=== PATIENT | male | born 1970 | race Caucasian/White ===

== ENCOUNTER 2020-10-26 07:28 | Outpatient (CLI) | payer OTHER, SELFPAY ==
[2020-10-26 07:52] LABS: Basophils Absolute Auto 0.1 K/mm3 (0.0-0.1); Basophils Percent Auto 0.9 % (0.2-1.2); Eosinophils Absolute Auto 0.3 K/mm3 (0-0.3); Eosinophils Percent Auto 3.2 % (0-4.4); Hematocrit 40.7 % (42.0-52.0); Hemoglobin 14.1 g/dL (14.0-18.0); Immature Granulocyte Absolute 0.05 K/mm3 (0.00-0.031); Immature Granulocyte Percent A 0.6 % (0-0.5); Lymphocytes Absolute Auto 2.77 K/mm3 (0.9-3.2); Lymphocytes Percent Auto 34.9 % (18.3-44.2); Mean Corpuscular HGB Conc 34.6 g/dl (32-36); Mean Corpuscular Hemoglobin 31.8 pg (26-34); Mean Corpuscular Volume 91.9 fl (80-100); Mean Platelet Volume 10.2 fl (7.4-10.4); Neutrophils Absolute Auto 3.8 K/mm3 (1.3-6.7); Neutrophils Percent Auto 48.4 % (45.5-73.1); Platelet Count Result 205 k/mm3 (150-375); Red Blood Count 4.43 M/mm3 (4.6-6.20); Red Cell Distribution Width 13.6 % (11.5-14.5); White Blood Count 7.9 K/mm3 (4.5-10.0)
[2020-10-26 08:29] LABS: Alanine Aminotransferase 54 U/L (4-50); Albumin Level 3.8 g/dL (3.5-5.1); Alkaline Phosphatase 66 U/L (38-126); Anion Gap 6 mmol/L (8-16); Aspartate Amino Transferase 41 U/L (17-59); Bilirubin,Total 0.5 mg/dL (0.2-1.3); Blood Urea Nitrogen 19 mg/dL (9-20); Calcium 8.4 mg/dL (8.4-10.2); Carbon Dioxide 28 mmol/L (22-30); Chloride 103 mmol/L (98-107); Cholesterol 192 mg/dL (0-200); Estimated Glomerular Filt Rate > 60; Glucose 133 mg/dL (75-110); HDL Direct 50 mg/dL; Potassium 3.6 mmol/L (3.4-5.0); Sodium 137 mmol/L (137-145); Triglycerides 208 mg/dL (<150)
[2020-10-26 08:39] LABS: LDL Cholesterol Direct 116 mg/dL
[2020-10-26 13:36] LABS: Hemoglobin A1C 7.4 % (<5.7)
== END 2020-10-26 07:29 | disposition home or self-care (01) ==
PROVIDERS: PCP Internal Medicine; Referring Provider Clinical Nurse Specialist; Visit Provider Nurse Practitioner
DX: E78.5 Hyperlipidemia, unspecified (principal); I10 Essential (primary) hypertension; R73.09 Other abnormal glucose; E03.9 Hypothyroidism, unspecified
CPT/HCPCS: 36415; 80053; 80061; 83036; 84443; 85025

== ENCOUNTER 2021-01-19 08:54 | Outpatient (CLI) | payer OTHER, SELFPAY ==
[2021-01-19 09:32] LABS: Basophils Absolute Auto 0.1 K/mm3 (0.0-0.1); Basophils Percent Auto 1.2 % (0.2-1.2); Eosinophils Absolute Auto 0.2 K/mm3 (0-0.3); Eosinophils Percent Auto 2.5 % (0-4.4); Hematocrit 41.8 % (42.0-52.0); Hemoglobin 14.2 g/dL (14.0-18.0); Immature Granulocyte Absolute 0.04 K/mm3 (0.00-0.031); Immature Granulocyte Percent A 0.5 % (0-0.5); Lymphocytes Absolute Auto 2.39 K/mm3 (0.9-3.2); Lymphocytes Percent Auto 30.9 % (18.3-44.2); Mean Corpuscular Hemoglobin 30.9 pg (26-34); Mean Corpuscular Volume 90.9 fl (80-100); Mean Platelet Volume 10.5 fl (7.4-10.4); Monocytes Absolute Auto 0.9 K/mm3 (0.1-0.6); Monocytes Percent Auto 11.9 % (2.6-8.5); Neutrophils Absolute Auto 4.1 K/mm3 (1.3-6.7); Platelet Count Result 227 k/mm3 (150-375); Red Cell Distribution Width 13.9 % (11.5-14.5); White Blood Count 7.7 K/mm3 (4.5-10.0)
[2021-01-19 09:56] LABS: Anion Gap 8 mmol/L (8-16); Blood Urea Nitrogen 16 mg/dL (9-20); Carbon Dioxide 30 mmol/L (22-30); Chloride 100 mmol/L (98-107); Cholesterol 207 mg/dL (0-200); Estimated Glomerular Filt Rate > 60; Glucose 120 mg/dL (75-110); HDL Direct 55 mg/dL; Potassium 3.8 mmol/L (3.4-5.0); Sodium 138 mmol/L (137-145); Triglycerides 129 mg/dL (<150)
[2021-01-19 10:04] LABS: LDL Cholesterol Direct 123 mg/dL
[2021-01-19 10:23] LABS: Prostate Specific Antigen 1.2 ng/mL (< OR = 4.0)
[2021-01-19 10:29] LABS: Hemoglobin A1C 6.3 % (<5.7)
[2021-01-19 10:36] LABS: MALB Creatinine Ratio 2.9 mg/g (0-30); Microalbumin Urine Random 6.9 mg/L (0-16.7)
== END 2021-01-19 08:55 | disposition home or self-care (01) ==
PROVIDERS: PCP Internal Medicine; Visit Provider Nurse Practitioner
DX: E11.9 Type 2 diabetes mellitus without complications (principal); Z12.5 Encounter for screening for malignant neoplasm of prostate
CPT/HCPCS: 36415; 80048; 80061; 82043; 83036; 84153; 85025

== ENCOUNTER 2021-07-25 07:22 | Outpatient (CLI) | payer OTHER, SELFPAY ==
[2021-07-25 08:28] LABS: Hemoglobin A1C 6.1 % (<5.7)
== END 2021-07-25 07:23 | disposition home or self-care (01) ==
PROVIDERS: PCP Internal Medicine; Visit Provider Nurse Practitioner
DX: E11.9 Type 2 diabetes mellitus without complications (principal)
CPT/HCPCS: 36415; 83036

== ENCOUNTER 2021-11-26 10:24 | Outpatient (CLI) | payer OTHER, SELFPAY ==
[2021-11-26 10:56] LABS: Basophils Absolute Auto 0.1 K/mm3 (0.0-0.1); Basophils Percent Auto 1.3 % (0.2-1.2); Eosinophils Absolute Auto 0.2 K/mm3 (0-0.3); Eosinophils Percent Auto 2.9 % (0-4.4); Hematocrit 42.6 % (42.0-52.0); Hemoglobin 14.8 g/dL (14.0-18.0); Immature Granulocyte Absolute 0.06 K/mm3 (0.00-0.031); Immature Granulocyte Percent A 0.8 % (0-0.5); Mean Corpuscular HGB Conc 34.7 g/dl (32-36); Mean Corpuscular Hemoglobin 30.8 pg (26-34); Mean Corpuscular Volume 88.8 fl (80-100); Mean Platelet Volume 10.5 fl (7.4-10.4); Monocytes Absolute Auto 0.7 K/mm3 (0.1-0.6); Monocytes Percent Auto 9.3 % (2.6-8.5); Neutrophils Absolute Auto 4.3 K/mm3 (1.3-6.7); Neutrophils Percent Auto 55.7 % (45.5-73.1); Platelet Count Result 231 k/mm3 (150-375); Red Cell Distribution Width 14.1 % (11.5-14.5); White Blood Count 7.7 K/mm3 (4.5-10.0)
[2021-11-26 11:04] LABS: Hemoglobin A1C 6.2 % (<5.7)
[2021-11-26 11:05] LABS: Alanine Aminotransferase 30 U/L (4-50); Albumin Level 4.4 g/dL (3.5-5.1); Alkaline Phosphatase 71 U/L (38-126); Anion Gap 7 mmol/L (8-16); Aspartate Amino Transferase 35 U/L (17-59); Bilirubin,Total 0.6 mg/dL (0.2-1.3); Blood Urea Nitrogen 20 mg/dL (9-20); Calcium 9.1 mg/dL (8.4-10.2); Carbon Dioxide 27 mmol/L (22-30); Chloride 104 mmol/L (98-107); Cholesterol 211 mg/dL (0-200); Estimated Glomerular Filt Rate > 60; Glucose 112 mg/dL (65-110); HDL Direct 51 mg/dL; Potassium 3.9 mmol/L (3.4-5.0); Sodium 138 mmol/L (137-145); Triglycerides 131 mg/dL (<150)
[2021-11-26 11:16] LABS: LDL Cholesterol Direct 113 mg/dL
[2021-11-26 11:37] LABS: Prostate Specific Antigen 1.3 ng/mL (< OR = 4.0)
[2021-11-26 12:50] LABS: Creatinine Urine 110.7 mg/dL
[2021-11-26 12:56] LABS: MALB Creatinine Ratio 6.3 mg/g (0-30)
== END 2021-11-26 10:25 | disposition home or self-care (01) ==
LOC: ANHLAB 10:26
PROVIDERS: PCP Internal Medicine; Visit Provider Clinical Nurse Specialist
DX: E11.9 Type 2 diabetes mellitus without complications (principal); I10 Essential (primary) hypertension; Z12.5 Encounter for screening for malignant neoplasm of prostate; E03.9 Hypothyroidism, unspecified; E78.5 Hyperlipidemia, unspecified
CPT/HCPCS: 36415; 80053; 80061; 82043; 83036; 84153; 84443; 85025; G0103

== ENCOUNTER 2022-05-24 07:25 | Outpatient (CLI) | payer OTHER, SELFPAY ==
[2022-05-24 08:25] LABS: Hemoglobin A1C 6.5 % (<5.7)
[2022-05-24 08:29] LABS: Cholesterol 210 mg/dL (0-200); HDL Direct 48 mg/dL; Triglycerides 311 mg/dL (<150)
[2022-05-24 08:42] LABS: LDL Cholesterol Direct 111 mg/dL
== END 2022-05-24 07:26 | disposition home or self-care (01) ==
LOC: ANHLAB 07:27
PROVIDERS: PCP Internal Medicine; Visit Provider Nurse Practitioner
DX: E11.9 Type 2 diabetes mellitus without complications (principal)
CPT/HCPCS: 36415; 80061; 83036

== ENCOUNTER 2022-12-04 07:52 | Outpatient (CLI) | payer OTHER, SELFPAY ==
[2022-12-04 08:43] LABS: Cholesterol 149 mg/dL (0-200); HDL Direct 53 mg/dL; Triglycerides 147 mg/dL (<150)
[2022-12-04 08:53] LABS: LDL Cholesterol Direct 63 mg/dL
== END 2022-12-04 07:53 | disposition home or self-care (01) ==
PROVIDERS: PCP Internal Medicine; Visit Provider Nurse Practitioner
DX: E78.5 Hyperlipidemia, unspecified (principal)
CPT/HCPCS: 36415; 80061

== ENCOUNTER 2022-12-06 15:06 | Outpatient (CLI) | payer OTHER, SELFPAY ==
[2022-12-06 20:02] LABS: Appearance Urine Clear (Clear); Bilirubin Urine Negative (Negative); Blood Urine Negative (Negative); Color Urine Yellow (Yellow); Glucose Urine UA Negative (Negative); Ketones Urine Negative (Negative); Leukocyte Esterase Ur Negative LEU/UL (Negative); Nitrate Urine Negative (Negative); Protein Urine Negative (Negative); Specific Grav Ur 1.025 (1.001-1.035); Urobilinogen Urine 0.2 mg/dL (<2.0)
[2022-12-06 20:06] LABS: Basophils Absolute Auto 0.1 K/mm3 (0.0-0.1); Basophils Percent Auto 0.9 % (0.2-1.2); Eosinophils Absolute Auto 0.2 K/mm3 (0-0.3); Eosinophils Percent Auto 2.3 % (0-4.4); Hematocrit 42.1 % (42.0-52.0); Hemoglobin 14.3 g/dL (14.0-18.0); Immature Granulocyte Absolute 0.04 K/mm3 (0.00-0.031); Immature Granulocyte Percent A 0.5 % (0-0.5); Lymphocytes Absolute Auto 2.33 K/mm3 (0.9-3.2); Lymphocytes Percent Auto 26.6 % (18.3-44.2); Mean Corpuscular Hemoglobin 31.2 pg (26-34); Mean Corpuscular Volume 91.7 fl (80-100); Mean Platelet Volume 11.3 fl (7.4-10.4); Monocytes Absolute Auto 0.8 K/mm3 (0.1-0.6); Monocytes Percent Auto 8.7 % (2.6-8.5); Neutrophils Absolute Auto 5.4 K/mm3 (1.3-6.7); Platelet Count Result 207 k/mm3 (150-375); Red Blood Count 4.59 M/mm3 (4.6-6.20); Red Cell Distribution Width 13.9 % (11.5-14.5); White Blood Count 8.8 K/mm3 (4.5-10.0)
[2022-12-06 20:19] LABS: Add Urine Microscopic? NO
[2022-12-06 20:20] LABS: Alanine Aminotransferase 48 U/L (6-50); Albumin Level 4.5 g/dL (3.5-5.1); Alkaline Phosphatase 80 U/L (38-126); Anion Gap 8 mmol/L (8-16); Aspartate Amino Transferase 53 U/L (17-59); Bilirubin,Total 0.6 mg/dL (0.2-1.3); Blood Urea Nitrogen 14 mg/dL (9-20); Carbon Dioxide 30 mmol/L (22-30); Chloride 102 mmol/L (98-107); Estimated Glomerular Filt Rate > 60; Glucose 125 mg/dL (65-110); Potassium 4.3 mmol/L (3.4-5.0); Sodium 140 mmol/L (137-145)
[2022-12-06 20:26] LABS: Bacteria Urine Trace /hpf; Mucus Urine Rare /lpf; RBC Urine 0-2 /hpf (0-2); Squamous Epithelial Cell Urine Rare /hpf (Few)
[2022-12-06 20:35] LABS: Hemoglobin A1C 6.5 % (<5.7)
[2022-12-06 20:48] LABS: Prostate Specific Antigen 1.2 ng/mL (< OR = 4.0)
[2022-12-06 21:26] LABS: Microalbumin Urine Random 8.8 mg/L (0-16.7)
== END 2022-12-06 15:07 | disposition home or self-care (01) ==
LOC: ANHGOSHLAB 15:08
PROVIDERS: PCP Internal Medicine; Visit Provider Nurse Practitioner
DX: E11.9 Type 2 diabetes mellitus without complications (principal); Z12.5 Encounter for screening for malignant neoplasm of prostate; R35.0 Frequency of micturition
CPT/HCPCS: 36415; 80053; 81003; 82043; 83036; 84153; 84443; 85025; G0103

== ENCOUNTER 2023-06-13 07:23 | Outpatient (CLI) | payer OTHER, SELFPAY ==
[2023-06-13 08:08] LABS: Basophils Absolute Auto 0.1 K/mm3 (0.0-0.1); Basophils Percent Auto 0.9 % (0.2-1.2); Eosinophils Absolute Auto 0.2 K/mm3 (0-0.3); Eosinophils Percent Auto 2.7 % (0-4.4); Hematocrit 40.7 % (42.0-52.0); Hemoglobin 13.7 g/dL (14.0-18.0); Immature Granulocyte Absolute 0.04 K/mm3 (0.00-0.031); Immature Granulocyte Percent A 0.5 % (0-0.5); Lymphocytes Absolute Auto 2.24 K/mm3 (0.9-3.2); Lymphocytes Percent Auto 30.4 % (18.3-44.2); Mean Corpuscular HGB Conc 33.7 g/dl (32-36); Mean Corpuscular Hemoglobin 31.4 pg (26-34); Mean Corpuscular Volume 93.1 fl (80-100); Monocytes Absolute Auto 0.8 K/mm3 (0.1-0.6); Monocytes Percent Auto 10.4 % (2.6-8.5); Neutrophils Absolute Auto 4.1 K/mm3 (1.3-6.7); Neutrophils Percent Auto 55.1 % (45.5-73.1); Platelet Count Result 186 k/mm3 (150-375); Red Blood Count 4.37 M/mm3 (4.6-6.20); Red Cell Distribution Width 13.8 % (11.5-14.5); White Blood Count 7.4 K/mm3 (4.5-10.0)
[2023-06-13 08:49] LABS: MALB Creatinine Ratio 4.7 mg/g (0-30); Microalbumin Urine Random 6.2 mg/L (0-16.7)
[2023-06-13 08:51] LABS: Prostate Specific Antigen 1.1 ng/mL (< OR = 4.0)
[2023-06-13 08:59] LABS: Appearance Urine Clear (Clear); Bilirubin Urine Negative (Negative); Blood Urine Negative (Negative); Color Urine Yellow (Yellow); Glucose Urine UA Negative (Negative); Ketones Urine Negative (Negative); Leukocyte Esterase Ur Negative LEU/UL (Negative); Nitrate Urine Negative (Negative); Protein Urine Negative (Negative); Specific Grav Ur 1.021 (1.001-1.035); Urobilinogen Urine 0.2 mg/dL (<2.0)
[2023-06-13 09:07] LABS: Add Urine Microscopic? NO
[2023-06-13 10:50] LABS: Hemoglobin A1C 6.9 % (<5.7)
== END 2023-06-13 07:24 | disposition home or self-care (01) ==
LOC: ANHLAB 07:24
PROVIDERS: PCP Internal Medicine; Referring Provider Clinical Nurse Specialist; Visit Provider Nurse Practitioner
DX: E11.9 Type 2 diabetes mellitus without complications (principal); R35.0 Frequency of micturition; Z12.5 Encounter for screening for malignant neoplasm of prostate; E03.9 Hypothyroidism, unspecified
CPT/HCPCS: 36415; 81003; 82043; 83036; 84153; 84443; 85025; G0103

== ENCOUNTER 2023-09-25 07:36 | Outpatient (CLI) | payer OTHER, SELFPAY ==
[2023-09-25 08:13] LABS: Basophils Absolute Auto 0.1 K/mm3 (0.0-0.1); Eosinophils Absolute Auto 0.3 K/mm3 (0-0.3); Eosinophils Percent Auto 3.1 % (0-4.4); Hematocrit 42.6 % (42.0-52.0); Hemoglobin 14.6 g/dL (14.0-18.0); Immature Granulocyte Absolute 0.05 K/mm3 (0.00-0.031); Immature Granulocyte Percent A 0.6 % (0-0.5); Immature Reticulocyte Fraction 15.5 % (3.0-15.9); Lymphocytes Percent Auto 31.1 % (18.3-44.2); Mean Corpuscular HGB Conc 34.3 g/dl (32-36); Mean Corpuscular Hemoglobin 31.5 pg (26-34); Mean Corpuscular Volume 91.8 fl (80-100); Mean Platelet Volume 11.1 fl (7.4-10.4); Monocytes Absolute Auto 0.8 K/mm3 (0.1-0.6); Monocytes Percent Auto 10.3 % (2.6-8.5); Neutrophils Absolute Auto 4.3 K/mm3 (1.3-6.7); Neutrophils Percent Auto 53.9 % (45.5-73.1); Platelet Count Result 194 k/mm3 (150-375); Red Blood Count 4.64 M/mm3 (4.6-6.20); Red Cell Distribution Width 13.6 % (11.5-14.5); Reticulocyte Hemoglobin Conten 35.7 pg (28.2-35.7); Reticulocyte Percent 1.67 % (0.7-4.3); Reticulocytes Absolute 0.08 M/mm3 (0.02-0.1)
[2023-09-25 08:21] LABS: Hemoglobin A1C 7.8 % (<5.7)
[2023-09-25 09:24] LABS: Alanine Aminotransferase 40 U/L (6-50); Albumin Level 4.2 g/dL (3.5-5.1); Alkaline Phosphatase 78 U/L (38-126); Anion Gap 9 mmol/L (8-16); Aspartate Amino Transferase 38 U/L (17-59); Bilirubin,Total 0.5 mg/dL (0.2-1.3); Blood Urea Nitrogen 28 mg/dL (9-20); Calcium 9.4 mg/dL (8.4-10.2); Carbon Dioxide 27 mmol/L (22-30); Chloride 106 mmol/L (98-107); Estimated Glomerular Filt Rate > 60; Glucose 149 mg/dL (65-110); Sodium 142 mmol/L (137-145)
[2023-09-25 09:38] LABS: Iron 88 ug/dL (49-181)
[2023-09-25 09:49] LABS: Percent Iron Saturation 27 % (20-50)
[2023-09-25 10:31] LABS: Folic Acid 13.6 ng/mL (2.76->20)
== END 2023-09-25 07:37 | disposition home or self-care (01) ==
LOC: ANHLAB 07:38
PROVIDERS: PCP Internal Medicine; Visit Provider Nurse Practitioner
DX: D64.9 Anemia, unspecified (principal); E11.9 Type 2 diabetes mellitus without complications; E03.9 Hypothyroidism, unspecified
CPT/HCPCS: 36415; 80053; 82607; 82728; 82746; 83036; 83540; 83550; 84439; 84443; 84481; 85025; 85046

== ENCOUNTER 2023-10-25 12:31 | Outpatient (CLI) | payer OTHER, SELFPAY ==
--- NOTE | 2023-10-25 13:00 | ECHO_ITS ---
Patient Info Name: Burak Meyers Age: 52 years : 1970 Gender: Male Ht: 71 in Wt: 234 lbs BSA: 2.34 m2 HR: 60 bpm BP: 125 / 87 mmHg Technical Quality: Good Exam Date: 10/25/2023 12:47 PM Exam Location: Echo Lab Patient Status: Outpatient Admit Date: 10/25/2023 Staff Ordering Physician: Amada Bailey NP Attending Provider: Amada Bailey NP Referring Physician: Leo BRIGHT; Exam Type: CA echo doppler color flow Study Info Indications - aortic root dilitation Complete two-dimensional, color flow and Doppler transthoracic echocardiogram is performed. Summary 1. Complete two-dimensional, color flow and Doppler transthoracic echocardiogram is performed. 2. Left ventricular chamber dimension is normal. 3. Left ventricular systolic function is normal, estimated at 60-65%. 4. The left ventricular diastolic function is grade I diastolic dysfunction. 5. E/e' 8 is minimally elevated. 6. There is trace mitral valve regurgitation. 7. The prox ascending aorta size is borderline dilated at 4.1 cm. Left Ventricle E/e' 8 is minimally elevated. Left ventricular chamber dimension is normal. Left ventricular systolic function is normal, estimated at 60-65%. The left ventricular diastolic function is grade I diastolic dysfunction. Right Ventricle Right ventricular systolic function is normal and with normal TAPSE 2.1 cm. Right ventricular chamber dimension is normal. Left Atria Left atrial chamber dimension is normal. Right Atria Right atrial chamber dimension is normal. Aortic Valve The aortic valve is trileaflet. There is no aortic valve stenosis. There is no aortic valve regurgitation. Pulmonic Valve There is no pulmonic regurgitation. Mitral Valve There is no mitral valve stenosis. There is trace mitral valve regurgitation. Tricuspid Valve There is no tricuspid valve regurgitation. Pericardium/Pleural There is no pericardial effusion. Inferior Vena Cava Normal inferior vena cava with >50% collapse upon inspiration consistent with normal right atrial pressure, 5 mmHg. Aorta The prox ascending aorta size is borderline dilated at 4.1 cm. The aortic root size at the sinus of Valsalva is normal. Left Ventricular Outflow Tract Name Value Normal LVOT 2D LVOT Diameter 2.0 cm LVOT Doppler LVOT Peak Velocity 118 cm/s LVOT Peak Gradient 5 mmHg LVOT Mean Gradient 3 mmHg LVOT VTI 24 cm LVOT VTI/AV VTI Ratio 0.8 LVOT Stroke Volume 78 ml LVOT CO 4.7 l/min LVOT CI 2.0 l/min/m2 Pulmonic Valve Name Value Normal PV Doppler PV Peak Velocity 102 cm/s PV Peak Gradient 4 mmHg PV Regurgitation Doppler
== END 2023-10-25 12:32 | disposition home or self-care (01) ==
PROVIDERS: PCP Internal Medicine; Visit Provider Nurse Practitioner
DX: I77.89 Other specified disorders of arteries and arterioles (principal)
CPT/HCPCS: 93306

== ENCOUNTER 2023-12-11 07:15 | Outpatient (CLI) | payer OTHER, SELFPAY ==
[2023-12-11 08:01] LABS: Anion Gap 6 mmol/L (8-16); Blood Urea Nitrogen 18 mg/dL (9-20); Calcium 8.7 mg/dL (8.4-10.2); Carbon Dioxide 28 mmol/L (22-30); Chloride 103 mmol/L (98-107); Cholesterol 120 mg/dL (0-200); Estimated Glomerular Filt Rate > 60; Glucose 122 mg/dL (65-110); HDL Direct 46 mg/dL; Potassium 3.6 mmol/L (3.4-5.0); Sodium 137 mmol/L (137-145); Triglycerides 106 mg/dL (<150)
[2023-12-11 08:11] LABS: LDL Cholesterol Direct 64 mg/dL
[2023-12-11 08:51] LABS: Hemoglobin A1C 6.6 % (<5.7)
[2023-12-11 09:07] LABS: MALB Creatinine Ratio 3.7 mg/g (0-30); Microalbumin Urine Random 6.9 mg/L (0-16.7)
[2023-12-14 11:29] LABS: Prostate Specific Antigen 1.2 ng/mL (< OR = 4.0)
== END 2023-12-11 07:16 | disposition home or self-care (01) ==
LOC: ANHLAB 07:16
PROVIDERS: PCP Internal Medicine; Visit Provider Nurse Practitioner
DX: E11.9 Type 2 diabetes mellitus without complications (principal)
CPT/HCPCS: 36415; 80048; 80061; 82043; 83036; 84153; G0103

== ENCOUNTER 2024-03-19 07:16 | Outpatient (CLI) | payer OTHER, SELFPAY ==
[2024-03-19 07:59] LABS: Anion Gap 5 mmol/L (4-12); Blood Urea Nitrogen 21 mg/dL (9-20); Calcium 9.1 mg/dL (8.4-10.2); Carbon Dioxide 29 mmol/L (22-30); Chloride 105 mmol/L (98-107); Estimated Glomerular Filt Rate > 60; Glucose 106 mg/dL (65-110); Sodium 139 mmol/L (137-145)
== END 2024-03-19 07:17 | disposition home or self-care (01) ==
LOC: ANHLAB 07:17
PROVIDERS: PCP Internal Medicine; Visit Provider Clinical Nurse Specialist
DX: E11.9 Type 2 diabetes mellitus without complications (principal)
CPT/HCPCS: 36415; 80048; 83036

== ENCOUNTER 2024-06-19 07:46 | Outpatient (CLI) | payer OTHER, SELFPAY ==
[2024-06-19 08:32] LABS: Cholesterol 174 mg/dL (0-200); HDL Direct 65 mg/dL; Triglycerides 88 mg/dL (<150)
[2024-06-19 08:43] LABS: LDL Cholesterol Direct 80 mg/dL
[2024-06-19 08:45] LABS: Hemoglobin A1C 5.5 % (<5.7)
[2024-06-19 08:58] LABS: Free T4 Free Thyroxine 1.16 ng/mL (0.78-2.19)
[2024-06-20 02:18] LABS: Triiodothyronine T3 Free 3.2 pg/mL (2.3-4.2)
[2024-06-25 18:33] LABS: Testosterone Free 92.7 pg/mL (35.0-155.0); Testosterone Total 528 ng/dL (250-1100)
== END 2024-06-19 07:47 | disposition home or self-care (01) ==
LOC: ANHLAB 07:47
PROVIDERS: PCP Internal Medicine; Visit Provider Nurse Practitioner
DX: E03.9 Hypothyroidism, unspecified (principal); E11.9 Type 2 diabetes mellitus without complications; R53.83 Other fatigue
CPT/HCPCS: 36415; 80061; 83036; 84402; 84403; 84439; 84443; 84481

== ENCOUNTER 2024-10-20 07:23 | Outpatient (CLI) | payer OTHER, SELFPAY ==
[2024-10-20 07:46] LABS: Basophils Absolute Auto 0.1 K/mm3 (0.0-0.1); Eosinophils Absolute Auto 0.2 K/mm3 (0-0.3); Eosinophils Percent Auto 3.2 % (0-4.4); Hematocrit 36.9 % (42.0-52.0); Hemoglobin 11.7 g/dL (14.0-18.0); Immature Granulocyte Absolute 0.03 K/mm3 (0.00-0.031); Immature Granulocyte Percent A 0.4 % (0-0.5); Lymphocytes Absolute Auto 2.18 K/mm3 (0.9-3.2); Lymphocytes Percent Auto 32.1 % (18.3-44.2); Mean Corpuscular HGB Conc 31.7 g/dl (32-36); Mean Corpuscular Hemoglobin 27.3 pg (26-34); Mean Corpuscular Volume 86.2 fl (80-100); Mean Platelet Volume 10.5 fl (7.4-10.4); Monocytes Absolute Auto 0.9 K/mm3 (0.1-0.6); Monocytes Percent Auto 13.4 % (2.6-8.5); Neutrophils Absolute Auto 3.4 K/mm3 (1.3-6.7); Neutrophils Percent Auto 49.9 % (45.5-73.1); Platelet Count Result 183 k/mm3 (150-375); Red Blood Count 4.28 M/mm3 (4.6-6.20); Red Cell Distribution Width 16.9 % (11.5-14.5); White Blood Count 6.8 K/mm3 (4.5-10.0)
[2024-10-20 07:56] LABS: Hemoglobin A1C 6.2 % (<5.7)
[2024-10-20 08:02] LABS: Alanine Aminotransferase 22 U/L (6-50); Albumin Level 4.2 g/dL (3.5-5.1); Alkaline Phosphatase 72 U/L (38-126); Anion Gap 3 mmol/L (4-12); Aspartate Amino Transferase 26 U/L (17-59); Bilirubin,Total 0.4 mg/dL (0.2-1.3); Blood Urea Nitrogen 17 mg/dL (9-20); Calcium 8.7 mg/dL (8.4-10.2); Carbon Dioxide 29 mmol/L (22-30); Chloride 108 mmol/L (98-107); Cholesterol 219 mg/dL (0-200); Estimated Glomerular Filt Rate > 60; Glucose 106 mg/dL (65-110); HDL Direct 67 mg/dL; Potassium 4.1 mmol/L (3.4-5.0); Sodium 140 mmol/L (137-145); Triglycerides 111 mg/dL (<150)
[2024-10-20 08:14] LABS: LDL Cholesterol Direct 110 mg/dL
== END 2024-10-20 07:24 | disposition home or self-care (01) ==
LOC: ANHLAB 07:23
PROVIDERS: PCP Internal Medicine; Visit Provider Nurse Practitioner
DX: E11.9 Type 2 diabetes mellitus without complications (principal); I10 Essential (primary) hypertension; Z12.5 Encounter for screening for malignant neoplasm of prostate
CPT/HCPCS: 36415; 80053; 80061; 83036; 84153; 84443; 85025; G0103

== ENCOUNTER 2024-11-07 11:48 | Outpatient (CLI) | payer OTHER, SELFPAY ==
--- OUTSIDE RECORDS SUMMARY | 2024-11-07 11:51 | XMS_ITS | Referral Summary ---
Author Organization [facility] [place] [address] Address [address] [place] [address] Care Team Providers Care Psychological Assistant Name Role Phone Jordi Siddiqui DO Primary Care Provider +1- [phone] Encounters Date Type Department Care Team Description 09/01/2024 Orders Only [facility] Cardiothoracic Surgery [address] [facility] Medicine 8th Floor [address] Room [address] [place] [address] Xander Gallegos MD from Last 3 Months Allergies Active Allergy Reactions Criticality Noted Date Comments Diphenhydramine Angioedema,Swelling High 09/14/2004 Medications Synthroid 50 mcg tablet Take 1 tablet (50 mcg total) by mouth assembler metal furniture before breakfast 4 Active omeprazole (PriLOSEC) 20 mg capsule Take 1 capsule (20 mg total) by mouth daily 4 Active hydroCHLOROthia zide (HYDRODIURIL) 12.5 mg tablet Take 1 tablet (12.5 mg total) by mouth daily 4 Active lisinopriL (PRINIVIL,ZESTR IL) 40 mg tablet Take 1 tablet (40 mg total) by mouth daily 3 Active amLODIPine (NORVASC) 5 mg tablet Take 1 tablet (5 mg total) by mouth daily 3 Active albuterol HFA (PROVENTIL HFA,VENTOLIN HFA,PROAIR HFA) 90 mcg/actuation inhaler Inhale 2 puffs as needed for wheezing or shortness of breath 3 Active folic acid/multivit-m in/lutein (CENTRUM SILVER ORAL) Take 1 tablet by mouth daily 3 Active tacrolimus (PROTOPIC) 0.1 % ointment Apply 1 Application topically as needed 3 Active atorvastatin (LIPITOR) 10 mg tablet Take 1 tablet (10 mg total) by mouth daily Active omega-3 fatty acids-fish oil 300-1,000 mg capsule Take 2 capsules (2 g total) by mouth daily Active calcium carb-vitamin D3-vit K2 500 mg calcium- 200 unit-90 mcg tablet Take 1 capsule by mouth daily Active Active Problems No known active problems Social History Tobacco Use Types Packs/Day Years Used Date Smoking Tobacco: Never Smokeless Tobacco: Former Chew Tobacco Cessation:Counseling Given: Not Answered Sex and Gender Information Value Date Recorded Sex Assigned at Not on file Legal Sex Male 7:31 AM RN PAIN MANAGEMENT Gender Identity Not on file Sexual Orientation Not on file Last Filed Vital Signs Vital Sign Reading Time Taken Comments Blood Pressure 119/77 12/10/2023 9:57 AM RN PAIN MANAGEMENT Pulse 61 12/10/2023 9:57 AM RN PAIN MANAGEMENT Temperature - - Respiratory Rate - - Oxygen Saturation 97% 12/10/2023 9:57 AM RN PAIN MANAGEMENT Inhaled Oxygen Concentration - - Weight 101.2 kg (223 lb) 12/10/2023 9:57 AM RN PAIN MANAGEMENT Height 180.3 cm (5' 11 ) 12/10/2023 9:57 AM RN PAIN MANAGEMENT Body Mass Index 31.1 12/10/2023 9:57 AM RN PAIN MANAGEMENT Plan of Treatment Not on file Insurance [place] [id number] CLAIMS [facility] Care Teams Psychological Assistant Relationship Specialty Start Date End Date Jordi Siddiqui DO PCP - General Internal Medicine 08/14/18
--- OUTSIDE RECORDS SUMMARY | 2024-11-07 11:51 | XMS_ITS | Clinical Summary ---
Author Organization [facility] [place] [address] Address [address] [place] [address] Care Team Providers Care Tailor Men'S Ready To Wear Name Role Phone Jordi Siddiqui DO Primary Care Provider +1- [phone] Allergies Active Allergy Reactions Criticality Noted Date Comments Diphenhydramine Angioedema,Swelling High 09/14/2004 Medications Synthroid 50 mcg tablet Take 1 tablet (50 mcg total) by mouth separating machine operator before breakfast 4 Active omeprazole (PriLOSEC) 20 [...] Active Active Problems No known active problems Encounters Date Type Department Care Team Description 09/01/2024 Orders Only [facility] Cardiothoracic Surgery [address] [facility] 8th Floor [address] Room [address] [place], [place] [id number] Xander Gallegos MD from Last 3 Months Surgical History Surgery Date Site/Laterality Comments DC UNLISTED PROCEDURE ABDOME N PERITONEUM & OMENTUM Hernia Repair - (Added by Conv) DC VASECTOMY UNI/BI SPX W/PO STOP SEMEN EXAMS Surgery Vas Deferens Vasectomy - (Added by Conv) APPENDECTOMY Medical History Medical History Date Comments Personal history of other di seases of the respiratory system Personal history of asthma - (Added by Conv) Anemia GERD (gastroesophageal reflux disease) HTN (hypertension) Hypothyroid Small bowel obstruction (CMS/HCC) (HCC) Family History Medical History Relation Name Comments Heart Problems Brother Lung cancer Father Breast cancer Mother Cancer Other 1 Cancer - (Added by Conv) Diabetes Other 2 Diabetes Mellit us - (Added by Conv) Relation Name Status Comments Brother Father Mother Other 1 Other 2 Social History Tobacco Use Types Packs/Day Years Used Date Smoking Tobacco: Never Smokeless Tobacco: Former Chew Tobacco Cessation:Counseling Given: Not Answered Sex and Gender Information Value Date Recorded Sex Assigned at Not on file Legal Sex Male 7:31 AM TRESTLE BUILDER Gender Identity Not on file Sexual Orientation Not on file Obstetrics History Last Filed Vital Signs Vital Sign Reading Time Taken Comments Blood Pressure 119/77 12/10/2023 9:57 AM TRESTLE BUILDER Pulse 61 12/10/2023 9:57 AM TRESTLE BUILDER Temperature - - Respiratory Rate - - Oxygen Saturation 97% 12/10/2023 9:57 AM TRESTLE BUILDER Inhaled Oxygen Concentration - - Weight 101.2 kg (223 lb) 12/10/2023 9:57 AM TRESTLE BUILDER Height 180.3 cm (5' 11 ) 12/10/2023 9:57 AM TRESTLE BUILDER Body Mass Index 31.1 12/10/2023 9:57 AM TRESTLE BUILDER Plan of Treatment Health Maintenance Due Date Last Done Comments Colon Cancer Screening-Colonoscopy 1970 Depression Screening 1970 Hepatitis C Screening 1970 Prostate Cancer Screening-PSA 1968 Pneumococcal vaccine <65 (1 of 2 - PCV) 1974 Hepatitis B Screening 1986 Regular Well Visit/Exam 18-64 1986 DTaP/Tdap/Td Vaccine (2 - Td or Tdap) 12/18/2016 12/18/2006, 11/06/1996 Covid-19 Vaccine (2 - 2023-2 5 season) 2024 12/10/2020 Influenza Vaccine (#1) 2024 , 12/20/2018, 07/10/2011, Additional history exists Zoster Vaccine Completed 10/18/2023, 07/18/2023 Insurance [facility] Care Teams Tailor Men'S Ready To Wear Relationship Specialty Start Date End Date Jordi Siddiqui DO PCP - General Internal Medicine 08/14/18
--- OUTSIDE RECORDS SUMMARY | 2024-11-07 11:51 | XMS_ITS | Clinical Summary ---
Author Organization [facility] Address [address] [place] [address]. [place], [place] [id number] [place] [address] Care Team Providers Care Surgeon/President Name Role Phone Jordi Siddiqui DO Primary Care Provider [phone] [phone] Allergies Active Allergy Reactions Criticality Noted Date Comments Diphenhydramine Swelling Medications levothyroxine 50 MCG tablet daily. 10/31/2018 Active lisinopril-hydroc hlorothiazide 20-25 MG tablet daily. 10/31/2018 Act jacek omeprazole 20 MG capsule daily. 12/17/2018 Active Active Problems No known active problems Family History Medical History Relation Comments Heart Brother Cancer Father Lung cancer Relation Status Comments Brother Father Social History Tobacco Use Types Packs/Day Years Used Date Smoking Tobacco: Never Smokeless Tobacco: Never Tobacco Cessation:Counseling Given: Not Answered Alcohol Use Standard Drinks/Week Comments Not Currently 0 (1 standard drink = 0.6 oz pur e alcohol) Sex and Gender Information Value Date Recorded Sex Assigned at Not on file Legal Sex Male 10:23 PM SPACE PHYSICIST Gender Identity Not on file Sexual Orientation Not on file Last Filed Vital Signs Vital Sign Reading Time Taken Comments Blood Pressure 149/104 03/07/2023 11:00 PM CDT Pulse 75 03/07/2023 11:00 PM CDT Temperature 36.8 ??C (98.2 ??F) 03/07/2023 11:00 PM C DT Respiratory Rate 16 03/07/2023 6:09 PM CDT Oxygen Saturation 97% 03/07/2023 11:00 PM CDT Inhaled Oxygen Concentration - - Weight 102.1 kg (225 lb) 03/07/2023 6:09 PM CDT Height 180.3 cm (5' 11 ) 03/07/2023 6:09 PM CDT Body Mass Index 31.38 03/07/2023 6:09 PM CDT Plan of Treatment Health Maintenance Due Date Last Done Comments Colorectal Cancer Screening Colonoscopy (10 Years) 1968 Annual Physical 1971 Hepatitis C 1986 Hepatitis B Vaccines (1 of 3 - 19+ 3-dose series) 1987 DTaP, Tdap and Td Vaccines (2 - Td or Tdap) 12/18/2016 12/18/2006, 11/06/1996 Zoster Vaccines (2 of 2) 09/12/2023 07/18/2023 COVID-19 Vaccine (2 - season) 2024 12/10/2020 Influenza Adult (#1) 2024 07/18/2023, 12/20/2018, 07/10/2011, Additional history exists Meningococcal Vaccine Aged Out 05/27/2002, 997 No longer eligible based on patient's age to complete this topic Meningococcal B Vaccine Aged Out No l onger eligible based on patient's age to complete this topic Pneumococcal Vaccine: Pediatrics (0 to 5 Years) and At-Risk Patients (6 to 64 Years) Aged Out No longer eligible based on patient's age to complete this topic RSV Immunizations Under 20 Months Aged Out No longer eligible based on patient's age to complete this topic Insurance Care Teams Surgeon/President Relationship Specialty Start Date End Date Jordi Siddiqui DO [address] [facility] [address] [place] [address] PCP - General INTERNAL MEDICINE 12/06/18
--- OUTSIDE RECORDS SUMMARY | 2024-11-07 11:51 | XMS_ITS | Clinical Summary ---
Author Organization [facility] Care Team Providers Care Professional Wrestler Name Role Phone Unavailable Primary Care Provider Unavailabl e Social History Tobacco Use Types Packs/Day Years Used Date Smoking Tobacco: Never Assessed Sex and Gender Information Value Date Recorded Sex Assigned at Not on file Legal Sex Male 1:47 PM VP STRATEGIC PLANNING Gender Identity Not on file Sexual Orientation Not on file Plan of Treatment Health Maintenance Due Date Last Done Comments Hepatitis C Virus (HCV) Screening 1970 TdaP Immunization 1968 Hepatitis B Immunization (1 of 3 - 19+ 3-dose series) 1987 Colonoscopy 2013 Colorectal Cancer Screening 2013 Cologuard 2018 Immunochemical Fecal Occult Blood 2018 Pneumococcal Immunization (5 0+ years) (1 of 1 - PCV) 2018 Zoster Immunization (1 of 2) 2018 PSA Discussion 2023 Influenza Immunization (#1) 2024 12/20/2018 SARS-COV-2 Immunization (2 - season) 2024 12/10/2020 Respiratory Syncytial Virus (RSV) Immunization (Adult) (1 - 1-dose 75+ series) 2043 Meningococcal Immunization (ACWY) Aged Out No longer eligible based on patient's age to complete this topic Pneumococcal Immunization Combined Aged Out No longer eligible based on patient's age to complete this topic Rotavirus Immunization Aged Out No lo nger eligible based on patient's age to complete this topic
[2024-11-07 13:37] LABS: Basophils Absolute Auto 0.1 K/mm3 (0.0-0.1); Basophils Percent Auto 1.3 % (0.2-1.2); Eosinophils Absolute Auto 0.2 K/mm3 (0-0.3); Eosinophils Percent Auto 2.7 % (0-4.4); Hemoglobin 11.9 g/dL (14.0-18.0); Immature Granulocyte Absolute 0.04 K/mm3 (0.00-0.031); Immature Granulocyte Percent A 0.5 % (0-0.5); Lymphocytes Absolute Auto 2.54 K/mm3 (0.9-3.2); Mean Corpuscular HGB Conc 31.3 g/dl (32-36); Mean Corpuscular Hemoglobin 26.4 pg (26-34); Mean Corpuscular Volume 84.4 fl (80-100); Mean Platelet Volume 10.5 fl (7.4-10.4); Monocytes Absolute Auto 0.8 K/mm3 (0.1-0.6); Monocytes Percent Auto 10.4 % (2.6-8.5); Neutrophils Absolute Auto 3.8 K/mm3 (1.3-6.7); Neutrophils Percent Auto 51.1 % (45.5-73.1); Platelet Count Result 215 k/mm3 (150-375); Red Cell Distribution Width 16.3 % (11.5-14.5); White Blood Count 7.5 K/mm3 (4.5-10.0)
[2024-11-07 14:00] LABS: Iron 44 ug/dL (49-181)
[2024-11-07 14:03] LABS: Prostate Specific Antigen 1.4 ng/mL (< OR = 4.0)
[2024-11-07 14:14] LABS: Percent Iron Saturation 10 % (20-50)
[2024-11-07 14:35] LABS: Ferritin 7.65 ng/mL (11.1-264)
[2024-11-07 14:36] LABS: Vitamin D 25 Hydroxy 39.4 ng/mL
[2024-11-07 14:53] LABS: Folic Acid > 20.0 ng/mL (2.76->20)
== END 2024-11-07 11:49 | disposition home or self-care (01) ==
PROVIDERS: PCP Internal Medicine; Visit Provider Nurse Practitioner
DX: E55.9 Vitamin D deficiency, unspecified (principal); R97.20 Elevated prostate specific antigen [PSA]; D64.9 Anemia, unspecified
CPT/HCPCS: 36415; 82306; 82607; 82728; 82746; 83540; 83550; 84153; 85025

== ENCOUNTER 2025-03-16 02:25 | Day surgery (SDC) | payer OTHER, SELFPAY ==
[2025-03-03 14:42] VITALS: BMI 30.5
--- OUTSIDE RECORDS SUMMARY | 2025-03-16 02:33 | XMS_ITS | Clinical Summary ---
Author Organization [facility] Care Team Providers Care Cold Mill Operator Name Role Phone Unavailable Primary Care Provider Unavailabl e Social History Tobacco Use Types Packs/Day Years Used Date Smoking Tobacco: Never Assessed Sex and Gender Information Value Date Recorded Sex Assigned at Not on file Legal Sex Male 1:47 PM CLINICAL REVIEW NURSE Gender Identity Not on file Sexual Orientation [...]
--- OUTSIDE RECORDS SUMMARY | 2025-03-16 02:33 | XMS_ITS | Clinical Summary ---
Author Organization [facility] [place] [address] Address [address] [place] [address] Care Team Providers Care Aircraft Structural Repairer Name Role Phone Jordi Siddiqui DO Primary Care Provider [phone]- [phone] Allergies Active Allergy Reactions Criticality Noted Date Comments Diphenhydramine Angioedema,Swelling High 09/14/2004 Medications Synthroid 50 mcg tablet Take 1 tablet (50 mcg total) by mouth air box tester before breakfast 4 Active omeprazole (PriLOSEC) 20 [...] Encounters Date Type Department Care Team Description 12/16/2024 Orders Only [facility] Cardiothoracic Surgery [address] [facility] 8th Floor [address] Room [address] [place] [address] Jordi Siddiqui DO Thoracic aortic ectasia (Primary Dx) 12/16/2024 Orders Only [facility] Cardiothoracic Surgery [address] [facility] 8th Floor [address] Room [address] [place] [address] Xander Gallegos MD Aneurysm of ascending aorta without rupture (Primary Dx) from Last 3 Months Surgical History Surgery Date Site/Laterality Comments AL UNLISTED PROCEDURE ABDOME N PERITONEUM & OMENTUM Hernia Repair - (Added by Conv) AL VASECTOMY UNI/BI SPX W/PO STOP SEMEN EXAMS Surgery Vas Deferens Vasectomy - (Added by TW Conv) APPENDECTOMY Medical History Medical History Date Comments Personal history of other di seases of the respiratory system Personal history of asthma - (Added by Conv) Anemia GERD (gastroesophageal reflux disease) HTN (hypertension) Hypothyroid Small bowel obstruction (HCC) Family History Medical History Relation Name Comments Heart Problems Brother Lung cancer Father Breast cancer Mother Cancer Other 1 Cancer - (Added by TW Conv) Diabetes [facility]) Relation Name Status Comments Brother Father Mother Other 1 Other 2 Social History Tobacco Use Types Packs/Day Years Used Date Smoking Tobacco: Never Smokeless Tobacco: Former Chew Tobacco Cessation:Counseling Given: Not Answered Sex and Gender Information Value Date Recorded Sex Assigned at Not on file Legal Sex Male 7:31 AM CLINICAL DIRECTOR Gender Identity Not on file Sexual Orientation Not on file Obstetrics History Last Filed Vital Signs Vital Sign Reading Time Taken Comments Blood Pressure 119/77 12/10/2023 9:57 AM CLINICAL DIRECTOR Pulse 61 12/10/2023 9:57 AM CLINICAL DIRECTOR Temperature - - Respiratory Rate - - Oxygen Saturation 97% 12/10/2023 9:57 AM CLINICAL DIRECTOR Inhaled Oxygen Concentration - - Weight 101.2 kg (223 lb) 12/10/2023 9:57 AM CLINICAL DIRECTOR Height 180.3 cm (5' 11) 12/10/2023 9:57 AM CLINICAL DIRECTOR Body Mass Index 31.1 12/10/2023 9:57 AM CLINICAL DIRECTOR Plan of Treatment Health Maintenance Due Date Last Done Comments Colon Cancer Screening-Colonoscopy 1968 Depression Screening 1968 Hepatitis C Screening 1968 Prostate Cancer Screening-PSA 1968 DTaP/Tdap/Td Vaccine (1 - Tdap) 1979 Hepatitis B Screening 1986 Regular Well Visit/Exam 18-64 1986 Covid-19 Vaccine (2 - 2023-2 5 season) 2024 12/10/2020 Influenza Vaccine (Season Ended) 2025 07/18/2023, 12/20/2018 Zoster Vaccine Completed 10/18/2023, 07/18/2023 Pneumococcal vaccine <65 Aged Out No longer eligible based on patient's age to complete this topic Insurance [facility] Care Teams Aircraft Structural Repairer Relationship Specialty Start Date End Date Jordi Siddiqui DO PCP - General Internal Medicine 08/14/18
--- OUTSIDE RECORDS SUMMARY | 2025-03-16 02:33 | XMS_ITS | Referral Summary ---
Author Organization [facility] [place] [address] Address [address] [place] [address] Care Team Providers Care Drafter Heating And Ventilating Name Role Phone Jordi Siddiqui DO Primary Care Provider +1- [phone] Encounters Date Type Department Care Team Description 12/16/2024 Orders Only [facility] Cardiothoracic Surgery [address] [facility] Advanced Medicine 8th Floor [address] Room [address] [place] [address] Jordi Siddiqui DO Thoracic aortic ectasia (Primary Dx) 12/16/2024 Orders Only [facility] Cardiothoracic Surgery [address] [facility] 8th Floor [address] Room [address] [address] Xander Gallegos MD Aneurysm of ascending aorta without rupture (Primary Dx) from Last 3 Months Allergies Active Allergy Reactions Criticality Noted Date Comments Diphenhydramine Angioedema,Swelling High 09/14/2004 Medications Synthroid 50 mcg tablet Take 1 tablet (50 mcg total) by mouth billing and quality technician before breakfast 4 Active omeprazole (PriLOSEC) 20 [...] on file Legal Sex Male 7:31 AM INTERNET E COMMERCE SPECIALIST Gender Identity Not on file Sexual Orientation Not on file Last Filed Vital Signs Vital Sign Reading Time Taken Comments Blood Pressure 119/77 12/10/2023 9:57 AM INTERNET E COMMERCE SPECIALIST Pulse 61 12/10/2023 9:57 AM INTERNET E COMMERCE SPECIALIST Temperature - - Respiratory Rate - - Oxygen Saturation 97% 12/10/2023 9:57 AM INTERNET E COMMERCE SPECIALIST Inhaled Oxygen Concentration - - Weight 101.2 kg (223 lb) 12/10/2023 9:57 AM INTERNET E COMMERCE SPECIALIST Height 180.3 cm (5' 11) 12/10/2023 9:57 AM INTERNET E COMMERCE SPECIALIST Body Mass Index 31.1 12/10/2023 9:57 AM INTERNET E COMMERCE SPECIALIST Plan of Treatment Not on file Insurance [facility] CLAIMS [facility] Care Teams Drafter Heating And Ventilating Relationship Specialty Start Date End Date Jordi Siddiqui DO PCP - General Internal Medicine 08/14/18
[2025-03-16 09:16] VITALS: BP 130/89; PULSE 75; RESP 18; TEMP 36.5; O2SAT 98
[2025-03-16 09:17] VITALS: BMI 30.8
[2025-03-16] MEDS: LACTATED RINGERS 1,000 ML 150 ML IV CONT (09:26)
--- NOTE | 2025-03-16 09:26 | P.PNAN_ITS ---
Anes - Initial Pre Proc Eval Procedure: Operation Date: 03/16/25 10:30 Proposed Procedures p Esophagogastroduodenoscopy & Colonoscopy - Yoshi Hubbard MD Date/Time: 03/16/25 09:26 Surgeon: Yoshi Hubbard MD Pre Op Diagnosis: anemia Patient Data Age: 54 Gender: M Height: 1.83 m Weight: 103 kg Last Vital Signs Temp 36.5 C 03/16/25 09:16 Pulse 75 03/16/25 09:16 Resp 18 03/16/25 09:16 BP 130/89 03/16/25 09:16 Pulse Ox 98 03/16/25 09:16 O2 Del Method Room Air 03/16/25 09:16 Allergies Allergy/AdvReac Type Severity Reaction Status Date / Time DIPHENHYDRAMINE HCL Allergy Unknown SWELLING Uncoded 03/16/25 09:15 Home Medications ?Medication ?Instructions ?Recorded ?Confirmed ?Type clobetasol 0.05 % topical cream 1 applic topical DAILY 10/28/20 03/16/25 History multivitamin,ys-xjtv-wvmwtecl 1 tablet PO DAILY 10/28/20 03/16/25 History (Complete Multivitamin tablet) tacrolimus 0.1 % topical ointment 1 applic topical Q12H PRN rash 10/28/20 03/03/25 History albuterol sulfate 90 mcg/actuation 2 inh inhalation Q6H PRN shortness 09/26/23 03/03/25 Rx breath activated powder inhaler of breath or wheezing #1 ea (ProAir RespiClick) cyclobenzaprine 10 mg tablet 10 mg PO BID PRN muscle spasm #20 03/21/24 03/03/25 Rx tabs omeprazole 20 mg capsule,delayed See Rx Instructions .Route 09/26/24 03/16/25 Rx release .COMPLEX #90 caps levothyroxine 50 mcg tablet 50 mcg PO DAILY 11/07/24 03/16/25 History (Synthroid) lisinopril 40 mg tablet 40 mg PO DAILY #90 tabs 11/21/24 03/16/25 Rx hydrochlorothiazide 12.5 mg tablet 12.5 mg PO DAILY #90 tabs 12/03/24 03/16/25 Rx Iron supplement 65 mg PO DAILY 01/30/25 03/16/25 History sertraline 100 mg tablet 100 mg PO DAILY #90 tabs 01/30/25 03/16/25 Rx Patient hx anesthesia problems: none Family hx anesthesia problems: none Results Review: All pre-operative results and documents have been reviewed as part of the pre- operative evaluation. ON LICENSE OF [facility] Past Medical History Medical History Anemia GERD (gastroesophageal reflux disease) Hypertension Hypothyroidism Small bowel obstruction Surgical History Surgical History H/O vasectomy 2009 History of appendectomy Family History Family History Mother Patient's mother is in good health Father Esophageal cancer Lung cancer Social History Social History Smoking status: Never smoker Second hand tobacco smoke exposure: Yes Alcohol intake: current Alcohol use details: Pt drinks occasionally. Substance use: never Do You Feel Safe in your Home?: Yes Lack of Transportation: No Lack of Food: Never True Current Housing: I Have Housing Concerned About Future Housing: No Difficulty Paying Gas/Electric Bills: No Difficulty Paying for Meds: No Currently Unemployed: No Education: Trade/Vocational Certificate Difficulty w/ Childcare or Family Care: No Anes - Eval Final PreProcedure Day of Procedure 03/16/25 09:26 Patient weight: obese Heart: regular rate and rhythm Lungs: clear to auscultation Airway: Mallampati scale class II Neurological: alert and oriented Last oral intake: >/= 8 hours ASA classification: III Emergent: no Anesthetic plan: proceed Anesthesia type and monitoring: general GIVS and standard monitoring Results Review: All pre-operative results and documents have been reviewed as part of the pre- operative evaluation. Informed Consent: The patient's anesthetic plan and its attendant risks and benefits were discussed with the patient/family/POA. Questions were solicited and answers provided to the satisfaction of the patient/family/POA.
--- NOTE | 2025-03-16 09:36 | PM.HPGS ---
History of Present Illness History of Present Illness Consent: Risks, benefits, and alternatives have been discussed and questions answered. Patient agrees to proceed with procedure. Chief complaint: anemia Narrative: Burak Meyers is a 54 year old male with colon polyp 2019, he has anemia, no overt gib Review of Systems Review of Systems: All systems reviewed & are unremarkable except as noted in HPI and below PMFSH Past Medical History Medical History Anemia GERD (gastroesophageal reflux disease) Hypertension Hypothyroidism Small bowel obstruction Surgical History Surgical History H/O vasectomy 2009 History of appendectomy Family History Family History Mother Patient's mother is in good health Father Esophageal cancer Lung cancer Social History Social History Smoking status: Never smoker Second hand tobacco smoke exposure: Yes Alcohol intake: current Alcohol use details: Pt drinks occasionally. Substance use: never Do You Feel Safe in your Home?: Yes Lack of Transportation: No Lack of Food: Never True Current Housing: I Have Housing Concerned About Future Housing: No Difficulty Paying Gas/Electric Bills: No Difficulty Paying for Meds: No Currently Unemployed: No Education: Trade/Vocational Certificate Difficulty w/ Childcare or Family Care: No Meds Home Medications and Allergies Home Medications ?Medication ?Instructions ?Recorded ?Confirmed ?Type clobetasol 0.05 % topical cream 1 applic topical DAILY 10/28/20 03/16/25 History multivitamin,bv-jnxm-rixmmzco 1 tablet PO DAILY 10/28/20 03/16/25 History (Complete Multivitamin tablet) tacrolimus 0.1 % topical ointment 1 applic topical Q12H PRN rash 10/28/20 03/03/25 History albuterol sulfate 90 mcg/actuation 2 inh inhalation Q6H PRN shortness 09/26/23 03/03/25 Rx breath activated powder inhaler of breath or wheezing #1 ea (ProAir RespiClick) cyclobenzaprine 10 mg tablet 10 mg PO BID PRN muscle spasm #20 03/21/24 03/03/25 Rx tabs omeprazole 20 mg capsule,delayed See Rx Instructions .Route 09/26/24 03/16/25 Rx release .COMPLEX #90 caps levothyroxine 50 mcg tablet 50 mcg PO DAILY 11/07/24 03/16/25 History (Synthroid) lisinopril 40 mg tablet 40 mg PO DAILY #90 tabs 11/21/24 03/16/25 Rx hydrochlorothiazide 12.5 mg tablet 12.5 mg PO DAILY #90 tabs 12/03/24 03/16/25 Rx Iron supplement 65 mg PO DAILY 01/30/25 03/16/25 History sertraline 100 mg tablet 100 mg PO DAILY #90 tabs 01/30/25 03/16/25 Rx Allergies Allergy/AdvReac Type Severity Reaction Status Date / Time DIPHENHYDRAMINE HCL Allergy Unknown SWELLING Uncoded 03/16/25 09:15 Vital Signs Vital Signs - 24 hr 03/16/25 09:16 Temperature 97.7 F Pulse Rate 75 Respiratory Rate 18 Blood Pressure 130/89 Pulse Oximetry 98 Oxygen Delivery Room Air Exam Const: General: comfortable and no acute distress HENMT: Face/Nose/Sinus: Normal nares present Eyes: General: appearance normal, both eyes and all related structures Neck: Neck: no JVD Resp: Auscultation: clear to auscultation bilaterally Cardio: Rate: regular rate Rhythm: regular rhythm GI: Inspection: non-distended GI Palp: Yes Soft to palpation Skin: General skin exam: normal color Neuro: General: gait normal Speech: normal speech Extrem: General: normal to inspection Psych: Mental Status: mental status grossly normal Assessment and Plan Assessment and plan (1) Anemia: Qualifiers: Anemia type: unspecified type Qualified Code(s): D64.9 - Anemia, unspecified Code(s): D64.9 - Anemia, unspecified Status: Acute Assessment and Plan: egd and colonoscopy
--- NOTE | 2025-03-16 09:46 | S_PTH ---
PATIENT: Burak Meyers LOC: [facility]#:[id number] AGE/SX: 54/M ROOM: RE03/16/[address]: Yoshi Hubbard MD : [id number] BED: DIS: 03/16/2025 SPEC #: [id number] RECD: 03/16/25 12:48 STATUS: ROCIO REKota #: [id number] CADE: 03/16/25 09:[address]: Yoshi Hubbard DEPT: [facility] Surgical RECD BY: Earnestine Cordova ENTERED: 03/16/25 12:51 SP TYPE: Surgical OTHR DR: Amada Bailey, [place] Tissues: A - Small Bowel Bx B - Gastric Biopsy Procedures: Hematoxylin and Eosin Stain Gross and Microscopic Level 4
--- NOTE | 2025-03-16 09:49 | SUR.OPER ---
EGD: [id number] COLON: Start 948
[2025-03-16 09:59] VITALS: BP 81/51; PULSE 66; RESP 15; O2SAT 97
[2025-03-16 10:09] VITALS: BP 86/50; PULSE 66; RESP 14; O2SAT 96
[2025-03-16 10:19] VITALS: BP 108/75; PULSE 71; RESP 16; O2SAT 97
== END 2025-03-16 10:31 | disposition home or self-care (01) ==
PROVIDERS: PCP Nurse Practitioner; Referring Provider Nurse Practitioner; Visit Provider Internal Medicine Gastroenterology
PROC: 0DJ08ZZ Inspection of Upper Intestinal Tract, Via Natural or Artificial Opening Endoscopic (ICD-10-PCS; CPT 45378; principal; 2025-03-16 10:30)
DX: D64.9 Anemia, unspecified (principal); K29.50 Unspecified chronic gastritis without bleeding; K57.30 Diverticulosis of large intestine without perforation or abscess without bleeding; Z86.0100 Personal history of colon polyps, unspecified; E66.9 Obesity, unspecified; Z68.30 Body mass index [BMI] 30.0-30.9, adult
CPT/HCPCS: 45378; 43239; 88305; J2704; J7120

== ENCOUNTER 2025-04-02 07:38 | Outpatient (CLI) | payer OTHER, SELFPAY ==
[2025-04-02 08:40] LABS: Basophils Absolute Auto 0.1 K/mm3 (0.0-0.1); Basophils Percent Auto 1.1 % (0.2-1.2); Eosinophils Absolute Auto 0.3 K/mm3 (0-0.3); Eosinophils Percent Auto 3.8 % (0-4.4); Hematocrit 41.3 % (42.0-52.0); Hemoglobin 13.7 g/dL (14.0-18.0); Immature Granulocyte Absolute 0.08 K/mm3 (0.00-0.031); Immature Granulocyte Percent A 1.1 % (0-0.5); Lymphocytes Absolute Auto 2.08 K/mm3 (0.9-3.2); Lymphocytes Percent Auto 28.9 % (18.3-44.2); Mean Corpuscular HGB Conc 33.2 g/dl (32-36); Mean Corpuscular Hemoglobin 30.9 pg (26-34); Mean Platelet Volume 10.4 fl (7.4-10.4); Monocytes Absolute Auto 0.8 K/mm3 (0.1-0.6); Neutrophils Absolute Auto 3.9 K/mm3 (1.3-6.7); Neutrophils Percent Auto 54.1 % (45.5-73.1); Platelet Count Result 181 k/mm3 (150-375); Red Blood Count 4.44 M/mm3 (4.6-6.20); Red Cell Distribution Width 14.4 % (11.5-14.5); White Blood Count 7.2 K/mm3 (4.5-10.0)
[2025-04-02 08:59] LABS: Alanine Aminotransferase 44 U/L (6-50); Albumin Level 4.2 g/dL (3.5-5.1); Alkaline Phosphatase 59 U/L (38-126); Anion Gap 9 mmol/L (4-12); Aspartate Amino Transferase 39 U/L (17-59); Bilirubin,Total 0.4 mg/dL (0.2-1.3); Blood Urea Nitrogen 18 mg/dL (9-20); Calcium 9.1 mg/dL (8.4-10.2); Carbon Dioxide 26 mmol/L (22-30); Chloride 104 mmol/L (98-107); Estimated Glomerular Filt Rate > 60; Glucose 123 mg/dL (65-110); Potassium 3.7 mmol/L (3.4-5.0); Sodium 139 mmol/L (137-145)
[2025-04-02 09:05] LABS: Hemoglobin A1C 6.3 % (<5.7)
[2025-04-02 09:44] LABS: Creatinine Urine 152.9 mg/dL
[2025-04-02 09:48] LABS: MALB Creatinine Ratio 5.8 mg/g (0-30); Microalbumin Urine Random 8.9 mg/L (0-16.7)
[2025-04-02 10:59] LABS: Iron 94 ug/dL (49-181)
[2025-04-02 11:09] LABS: Percent Iron Saturation 29 % (20-50)
[2025-04-02 11:19] LABS: Reticulocyte Hemoglobin Conten 35.7 pg (28.2-36.6); Reticulocyte Percent 2.04 % (0.7-4.3); Reticulocytes Absolute 0.09 10^6/uL (0.02-0.10)
== END 2025-04-02 07:39 | disposition home or self-care (01) ==
PROVIDERS: PCP Internal Medicine; Visit Provider Nurse Practitioner
DX: D64.9 Anemia, unspecified (principal); E11.9 Type 2 diabetes mellitus without complications
CPT/HCPCS: 36415; 80053; 82043; 82728; 83036; 83540; 83550; 85025; 85046

== ENCOUNTER 2025-06-02 12:30 | Outpatient (CLI) | payer OTHER, SELFPAY ==
--- OUTSIDE RECORDS SUMMARY | 2025-06-02 12:34 | XMS_ITS | Clinical Summary ---
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 Gender Identity Not on file Sexual Orientation Not on file Plan of Treatment Health Maintenance Due Date Last Done Comments Hepatitis C Virus (HCV) Screening 1970 TdaP Immunization 1968 Hepatitis B Immunization (1 of 3 - 19+ 3-dose series) 1987 Cologuard 2013 Colonoscopy 2013 Colorectal Cancer Screening 2013 Immunochemical Fecal Occult Blood 2013 Pneumococcal Immunization (5 0+ years) (1 of 1 - PCV) 2018 Zoster Immunization (1 of 2) 2018 SARS-COV-2 Immunization (2 - 2023- season) 2024 12/10/2020 Influenza Immunization (#1) 2025 12/20/2018 Respiratory Syncytial Virus (RSV) Immunization (Adult) (1 - 1-dose 75+ series) 2043 Human Papillomavirus (HPV) Immunization Aged Out No longer eligible b ased on patient's age to complete this topic Meningococcal Immunization (ACWY) Aged Out No longer eligible based on patient's age to complete this topic Rotavirus Immunization Aged Out No lo nger eligible based on patient's age to complete this topic
--- OUTSIDE RECORDS SUMMARY | 2025-06-02 12:34 | XMS_ITS | Clinical Summary ---
Author Organization [facility] [place] [address] Address [address] [place] [address] Care Team Providers Care Production Recovery Operator Name Role Phone Jordi Siddiqui DO Primary Care Provider [phone] Allergies Active Allergy Reactions Criticality Noted Date Comments Diphenhydramine Angioedema,Swelling High 09/14/2004 Medications Synthroid 50 mcg tablet Take 1 tablet (50 mcg total) by mouth early education teacher before breakfast 4 Active omeprazole (PriLOSEC) 20 [...] Active Active Problems No known active problems Surgical History Surgery Date Site/Laterality Comments OK UNLISTED PROCEDURE ABDOME N PERITONEUM & OMENTUM Hernia Repair - (Added by Conv) [place] VASECTOMY UNI/BI SPX W/PO STOP SEMEN EXAMS [...] by Conv) Diabetes Other 2 Diabetes Mellit - (Added by Conv) Relation Name Status Comments Brother Father Mother Other 1 Other 2 Social History Tobacco Use Types Packs/Day Years Used Date Smoking Tobacco: Never Smokeless Tobacco: Former Chew Tobacco Cessation:Counseling Given: Not Answered Sex and Gender Information Value Date Recorded Sex Assigned at Not on file 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 Gender Identity Not on file Sexual Orientation Not on file Obstetrics History Last Filed Vital Signs Vital Sign Reading Time Taken Comments Blood Pressure 119/77 12/10/2023 9:57 AM CHEMIST Pulse 61 12/10/2023 9:57 AM CHEMIST Temperature - - Respiratory Rate - - Oxygen Saturation 97% 12/10/2023 9:57 AM CHEMIST Inhaled Oxygen Concentration - - Weight 101.2 kg (223 lb) 12/10/2023 9:57 AM CHEMIST Height 180.3 cm (5' 11) 12/10/2023 9:57 AM CHEMIST Body Mass Index 31.1 12/10/2023 9:57 AM CHEMIST Plan of Treatment Health Maintenance Due Date Last Done Comments Colon Cancer Screening-Colonoscopy 1968 Depression Screening 1968 Hepatitis C Screening 1968 Prostate Cancer Screening-PSA 1968 DTaP/Tdap/Td Vaccine (1 - Tdap) 1979 Hepatitis B Screening 1986 Regular Well Visit/Exam 18-64 1986 Covid-19 Vaccine (2023-2 5 season) 2024 12/10/2020 Influenza Vaccine (#1) 2025 , 12/20/2018 Zoster Vaccine Completed 10/18/2023, 07/18/2023 Pneumococcal vaccine <65 Aged Out No longer eligible based on patient's age to complete this topic Insurance [facility] Care Teams Production Recovery Operator Relationship Specialty Start Date End Date Jordi Siddiqui DO PCP - General Internal Medicine 08/14/18
[2025-06-02 12:44] LABS: Hematocrit 35.6 % (42.0-52.0); Hemoglobin 12.0 g/dL (14.0-18.0); Immature Granulocyte Percent A 0.8 % (0-0.5); Immature Reticulocyte Fraction 25.5 % (3.0-15.9); Lymphocytes Absolute Auto 2.27 K/mm3 (0.9-3.2); Mean Corpuscular HGB Conc 33.7 g/dl (32-36); Mean Corpuscular Hemoglobin 31.7 pg (26-34); Mean Corpuscular Volume 93.9 fl (80-100); Nucleated Red Blood Cells Absolute Auto 0.000 K/mm3 (0.0-0.012); Nucleated Red Blood Cells Perc 0.0 % (0.0-0.2); Platelet Count Result 172 k/mm3 (150-375); Red Blood Count 3.79 M/mm3 (4.6-6.20); Reticulocyte Hemoglobin Conten 35.6 pg (28.2-36.6); Reticulocytes Absolute 0.09 10^6/uL (0.02-0.10); White Blood Count 7.5 K/mm3 (4.5-10.0)
[2025-06-02 13:18] LABS: Iron 118 ug/dL (49-181)
[2025-06-02 13:28] LABS: Percent Iron Saturation 37 % (20-50)
== END 2025-06-02 12:31 | disposition home or self-care (01) ==
LOC: ANHLAB 12:31
PROVIDERS: PCP Internal Medicine; Visit Provider Nurse Practitioner
DX: D64.9 Anemia, unspecified (principal)
CPT/HCPCS: 36415; 83540; 83550; 85025; 85046

== ENCOUNTER 2025-07-15 17:58 | Emergency (ER) | payer OTHER, SELFPAY ==
[2025-07-15 18:00] VITALS: BP 150/90; PULSE 65; RESP 16; TEMP 36.4; O2SAT 99
--- NOTE | 2025-07-15 18:30 | ED.GENADULT ---
HPI - General Adult General Chief complaint: Eye Problems <Barbara Lomeli February, SHIP YARD ELECTRICAL PERSON - Last Filed: 07/15/25 18:33> Stated complaint: left eye problem <Barbara Lomeli February, SHIP YARD ELECTRICAL PERSON - Last Filed: 07/15/25 18:33> Time Seen by Provider: 07/15/25 18:30 <Barbara Lomeli February, SHIP YARD ELECTRICAL PERSON - Last Filed: 07/15/25 18:33> Focused HPI: Burak Meyers is a 54 y/o male who presents with reports of having a shooting star going across left eye visual field that started last night at 1999, he went to bed but today he has had continued squiggly line and shadows in the left eye visual field, No pain in the eye. He wears contacts but did not wear them yesterday. No Headache or any other symptoms. GENERAL: Well-appearing, well-nourished, and in no acute distress. HEAD: Normocephalic, atraumatic. CHEST: Clear to auscultation. ?No respiratory distress. HEART: Regular rate and rhythm.? NEURO: ?Alert and oriented x3. Patient screened in triage and initial orders placed.? ?Additional care and disposition to be based upon?diagnostic testing and treatment. <Barbara Lomeli February, SHIP YARD ELECTRICAL PERSON - Last Filed: 07/15/25 18:33> History of Present Illness HPI narrative: Agree with the above with the following additions/corrections: Patient presents with left eye flashes of light floaters. He notes that he particularly sees the flashes of light when it is dark and thus because he is in a lit room right now is not experiencing that however the floaters persist. He experienced flashes of light starting last night and then 1 or 2 times today. The intensity of them seem to be getting worse and they would streaking across his visual field in his left eye. This has never happened before. He has also been experiencing a curved shaped within his left visual field last known. Wounds glasses and occasional wear contacts but has not been wearing contacts today. All of this is painless. He denies any pain in his eye and denies a headache. His eye not been particularly red that he notices he denies any visual change otherwise. No trauma. The floaters in his visual field will sometimes be like squiggles, like a hair.He otherwise denies any curtain like defect or quadrant like defect. No black areas of absent vision. He denies any new medications. He denies any other neurological deficits including no unilateral motor or sensory issues or slurred speech. Symptoms will occasionally happen with movement of his. His eye doctor [facility] in [place], Dr Petit. He has not noticed any particular increased tearing/lacrimation/drainage. He denies any foreign body sensation. No gritty sensation. <Marjorie Rodriguez MD - Last Filed: 07/17/25 08:22> Related Data Home medications: Home Medications ?Medication ?Instructions ?Recorded ?Confirmed ?Last Taken ?Type clobetasol 0.05 % topical cream 1 applic topical DAILY 10/28/20 06/05/25 03/15/25 History multivitamin,ts-euzv-idmicxvr 1 tablet PO DAILY 10/28/20 06/05/25 03/15/25 History (Complete Multivitamin tablet) tacrolimus 0.1 % topical ointment 1 applic topical Q12H PRN rash 10/28/20 06/05/25 Unknown History Iron supplement 65 mg PO DAILY 01/30/25 06/05/25 03/15/25 History <Barbara Lomeli February, SHIP YARD ELECTRICAL PERSON - Last Filed: 07/15/25 18:33> Allergies/adverse reactions: Allergies Allergy/AdvReac Type Severity Reaction Status Date / Time DIPHENHYDRAMINE HCL Allergy Unknown SWELLING Uncoded 06/05/25 11:28 <Barbara Luciano, SHIP YARD ELECTRICAL PERSON - Last Filed: 07/15/25 18:33> [facility] Past Medical History Medical History: Medical History Wears glasses Anemia GERD (gastroesophageal reflux disease) Hypertension Hypothyroidism Small bowel obstruction <Barbara Lomeli February, SHIP YARD ELECTRICAL PERSON - Last Filed: 07/15/25 18:33> Surgical History Surgical History: Surgical History H/O vasectomy 2009 History of appendectomy <Barbara Luciano, SHIP YARD ELECTRICAL PERSON - Last Filed: 07/15/25 18:33> Family History Family History: Family History Mother Patient's mother is in good health Father Esophageal cancer Lung cancer <Barbara OvidioDaniel February, SHIP YARD ELECTRICAL PERSON - Last Filed: 07/15/25 18:33> Social History Social History: Social History Smoking status: Never smoker Second hand tobacco smoke exposure: Yes Alcohol intake: current Alcohol use details: Pt drinks occasionally. Substance use: never Substance use type: does not use Do You Feel Safe in your Home?: Yes Lack of Transportation: No Lack of Food: Never True Current Housing: I Have Housing Concerned About Future Housing: No Difficulty Paying Gas/Electric Bills: No Difficulty Paying for Meds: No Currently Unemployed: No Education: Trade/Vocational Certificate Difficulty w/ Childcare or Family Care: No Living arrangements: with family Occupation/Education: occupation Additional occupation/education comments: Owns a restaurant Spiritual care concerns: No <Barbara Lomeli February, SHIP YARD ELECTRICAL PERSON - Last Filed: 07/15/25 18:33> Exam Narrative: GENERAL: Well-appearing, well-nourished, and in no acute distress. HEAD: Normocephalic, atraumatic. EYES: Non injected, non icteric Visual acuity Left 20/25 , right 20/20 per RN PERRL Extraocular motility and alignment normal without entrapment or nystagmus Intra-ocular pressure 16-18 in left External examination normal Slit-lamp examination w/o abnormalities. Normal Keven/fluoroscein exam. Funduscopic examination attempted, visualized some blood vessels but unable to fully visualize for papilledema or other pathology ENT: Nares clear, no rhinorrhea or epistaxis. Gross auditory acuity intact. NECK: Supple. No meningismus. CHEST: Speaking in full sentences. No respiratory distress. HEART: Regular rate and rhythm. . ABDOMEN: Soft, nondistended. EXTREMITIES: Normal range of motion. No lower extremity edema. SKIN: Warm, dry, no rash. NEURO: No focal deficits. Alert and oriented. Answering questions. Following commands. Normal speech without aphasia or dysarthria. Face grossly symmetric. PSYCH: Normal mood and affect. <Marjorie Rodriguez MD - Last Filed: 07/17/25 08:22> Course Vital Signs Vital signs: Vital Signs Temperature 97.6 F 07/15/25 18:00 Pulse Rate 65 07/15/25 18:00 Respiratory Rate 16 07/15/25 18:00 Blood Pressure 150/90 H 07/15/25 18:00 Pulse Oximetry 99 07/15/25 18:00 Oxygen Delivery Room Air 07/15/25 18:00 Temperature 97.7 F 07/15/25 21:28 Pulse Rate 69 07/15/25 21:28 Respiratory Rate 17 07/15/25 21:28 Blood Pressure 146/86 H 07/15/25 21:28 Pulse Oximetry 100 07/15/25 21:28 Oxygen Delivery Room Air 07/15/25 18:00 <Barbara Luciano, SHIP YARD ELECTRICAL PERSON - Last Filed: 07/15/25 18:33> Vital Signs Temperature 97.6 F 07/15/25 18:00 Pulse Rate 65 07/15/25 18:00 Respiratory Rate 16 07/15/25 18:00 Blood Pressure 150/90 H 07/15/25 18:00 Pulse Oximetry 99 07/15/25 18:00 Oxygen Delivery Room Air 07/15/25 18:00 Temperature 97.7 F 07/15/25 21:28 Pulse Rate 69 07/15/25 21:28 Respiratory Rate 17 07/15/25 21:28 Blood Pressure 146/86 H 07/15/25 21:28 Pulse Oximetry 100 07/15/25 21:28 Oxygen Delivery Room Air 07/15/25 18:00 <Marjorie Rodriguez MD - Last Filed: 07/17/25 08:22> Medical Decision Making MDM Narrative Medical decision making narrative: Patient presents with left eye flashes and floaters. Otherwise painless and denies any visual changes including no visual loss/curtain defect. No headache or other neurological deficits/symptoms. In the emergency department he is afebrile with vital signs notable for mild hypertension. Differential diagnosis: posterior vitreous detachment, retinal tear detachment, macular degeneration, optic neuritis, retinal pressure , migraine with aura/ocular migraine, occipital tumor, TIA, medication side effect, postural hypotension; Vitreous hemorrhage, posterior uveitis, ocular tumor, intra-ocular foreign body Bedside POCUS (point of care ultrasound) performed which was without obvious pathology - no obvious evidence of posterior vitreous detachment or retinal tear. IOP 16-18. Discussed with Dr Arias ophthalmology at [facility] (Dr Bodwen attending). Happy to see him. Sounds stable. Could be seen in clinic tonight (adjacent to ED). Call photostat operator helper ([phone]) for building; dial 0 and ask for operations business partner eye doctor. Also Gave cell number for patient to use if needed (this was provided on a Post-It rather than typed in chart). Given that this is the follow-up plan, patient is therefore technically declined from a transfer perspective but rather a discharge with immediate follow up. <Marjorie Rodriguez MD - Last Filed: 07/17/25 08:22> Vital Signs Vital Signs: Vital Signs Temperature 97.6 F 07/15/25 18:00 Pulse Rate 65 07/15/25 18:00 Respiratory Rate 16 07/15/25 18:00 Blood Pressure 150/90 H 07/15/25 18:00 Pulse Oximetry 99 07/15/25 18:00 Oxygen Delivery Room Air 07/15/25 18:00 Temperature 97.7 F 07/15/25 21:28 Pulse Rate 69 07/15/25 21:28 Respiratory Rate 17 07/15/25 21:28 Blood Pressure 146/86 H 07/15/25 21:28 Pulse Oximetry 100 07/15/25 21:28 Oxygen Delivery Room Air 07/15/25 18:00 <Brabara Luciano, SHIP YARD ELECTRICAL PERSON - Last Filed: 07/15/25 18:33> Vital Signs Temperature 97.6 F 07/15/25 18:00 Pulse Rate 65 07/15/25 18:00 Respiratory Rate 16 07/15/25 18:00 Blood Pressure 150/90 H 07/15/25 18:00 Pulse Oximetry 99 07/15/25 18:00 Oxygen Delivery Room Air 07/15/25 18:00 Temperature 97.7 F 07/15/25 21:28 Pulse Rate 69 07/15/25 21:28 Respiratory Rate 17 07/15/25 21:28 Blood Pressure 146/86 H 07/15/25 21:28 Pulse Oximetry 100 07/15/25 21:28 Oxygen Delivery Room Air 07/15/25 18:00 <Marjorie Rodriguez MD - Last Filed: 07/17/25 08:22> Discharge Plan Discharge Clinical Impression: Sees flashes of light, Floaters in visual field <Barbara Luciano, SHIP YARD ELECTRICAL PERSON - Last Filed: 07/15/25 18:33> Patient Disposition: Home <Barbara NolanDaniel February, Filed: 07/15/25 18:33> Condition: Stable <Barbara NolanDaniel February, Filed: 07/15/25 18:33> Instructions: Antibiotic Form, Eye (Visual) Floaters (ED) <Barbara Lomeli February, Filed: 07/15/25 18:33> Additional Instructions: You can present directly to the [facility] Ophthalmology clinic and they will evaluate you there. Call preferred number [phone] and dial [phone] for the photostat operator helper and ask to be connected to the eye doctor operations business partner. Alternatively, he also is giving his personal cell number . <Barbara Lomeli February, Filed: 07/15/25 18:33> Patient Language: Czech <Barbara JDaniel February, Filed: 07/15/25 18:33> Prescriptions: No Action Complete Multivitamin Tablet 1 tablet PO DAILY tacrolimus 0.1 % ointment 1 applic topical Q12H PRN (Reason: rash) clobetasol 0.05 % cream 1 applic topical DAILY ProAir RespiClick 90 mcg/actuation aerosol powdr breath activated 2 inh inhalation Q6H PRN (Reason: shortness of breath or wheezing) Qty: 1 0RF cyclobenzaprine 10 mg tablet 10 mg PO BID PRN (Reason: muscle spasm) Qty: 20 0RF Iron supplement 65 mg PO DAILY sertraline 25 mg tablet 25 mg PO DAILY Qty: 30 0RF Rx Instructions: After completing Sertraline 50mg daily x 2 weeks START Sertraline 25mg PO daily x 2 weeks then every other day x 2 weeks then STOP. sertraline 50 mg tablet 50 mg PO DAILY Qty: 14 0RF hydrochlorothiazide 12.5 mg tablet 12.5 mg PO DAILY Qty: 90 1RF lisinopril 40 mg tablet 40 mg PO DAILY Qty: 90 1RF omeprazole 20 mg capsule,delayed release(DR/EC) See Rx Instructions .ROUTE .COMPLEX Qty: 90 1RF Dose Instruction: TAKE 1 CAPSULE DAILY Rx Instructions: TAKE 1 CAPSULE DAILY levothyroxine [Synthroid] 50 mcg tablet 50 mcg PO DAILY Qty: 90 1RF <Barbara Lomeli February, Filed: 07/15/25 18:33> Follow-up/Referrals: Amada Bailey, [place] [Primary Care Provider, Internal Medicine] <Barbara Luciano APRN - Last Filed: 07/15/25 18:33> Stand Alone Forms: Work/School Release IP <Barbara Luciano APRN - Last Filed: 07/15/25 18:33> Time of Disposition: 21:09 <Barbara Luciano APRN - Last Filed: 07/15/25 18:33> 21:09 <Marjorie Rodriguez MD - Last Filed: 07/17/25 08:22>
[2025-07-15 21:00] VITALS: BP 146/86; PULSE 69; RESP 17; TEMP 36.5; O2SAT 100
[2025-07-15 21:28] VITALS: BP 146/86; PULSE 69; RESP 17; TEMP 36.5; O2SAT 100
== END 2025-07-15 21:30 | disposition home or self-care (01) ==
PROVIDERS: Emergency Provider Student in an Organized Health Care Education/Training Program; PCP Nurse Practitioner
DX: H53.8 Other visual disturbances (principal)
CPT/HCPCS: 99283

== ENCOUNTER 2025-09-16 07:48 | Outpatient (CLI) | payer OTHER, SELFPAY ==
[2025-09-16 08:10] LABS: Hematocrit 43.6 % (42.0-52.0); Hemoglobin 15.0 g/dL (14.0-18.0); Immature Granulocyte Percent A 0.9 % (0-0.5); Lymphocytes Absolute Auto 2.14 K/mm3 (0.9-3.2); Mean Corpuscular HGB Conc 34.4 g/dl (32-36); Mean Corpuscular Hemoglobin 31.6 pg (26-34); Mean Corpuscular Volume 91.8 fl (80-100); Nucleated Red Blood Cells Absolute Auto 0.000 K/mm3 (0.0-0.012); Nucleated Red Blood Cells Perc 0.0 % (0.0-0.2); Platelet Count Result 189 k/mm3 (150-375); Red Blood Count 4.75 M/mm3 (4.6-6.20); White Blood Count 7.5 K/mm3 (4.5-10.0)
[2025-09-16 08:21] LABS: Hemoglobin A1C 6.7 % (<5.7)
[2025-09-16 08:34] LABS: Alanine Aminotransferase 33 U/L (6-50); Albumin Level 4.4 g/dL (3.5-5.1); Alkaline Phosphatase 66 U/L (38-126); Anion Gap 6 mmol/L (4-12); Aspartate Amino Transferase 32 U/L (17-59); Bilirubin,Total 0.5 mg/dL (0.2-1.3); Blood Urea Nitrogen 15 mg/dL (9-20); Calcium 9.2 mg/dL (8.4-10.2); Carbon Dioxide 27 mmol/L (22-30); Chloride 103 mmol/L (98-107); Cholesterol 263 mg/dL (0-200); Estimated Glomerular Filt Rate > 60; Glucose 134 mg/dL (65-110); HDL Direct 58 mg/dL; Potassium 3.9 mmol/L (3.4-5.0); Sodium 136 mmol/L (137-145); Total Protein 7.5 g/dL (6.3-8.2); Triglycerides 251 mg/dL (<150)
[2025-09-16 08:51] LABS: Free T4 Free Thyroxine 1.20 ng/dL (0.78-2.19)
[2025-09-16 09:10] LABS: Thyroid Stimulating Hormone 3.400 uIU/mL (0.465-4.680)
[2025-09-16 09:45] LABS: MALB Creatinine Ratio 4.6 mg/g (0-30)
[2025-09-17 07:09] LABS: Triiodothyronine (T3), Free 3.2 pg/mL (2.0-4.4)
== END 2025-09-16 07:49 | disposition home or self-care (01) ==
PROVIDERS: PCP Nurse Practitioner; Visit Provider Nurse Practitioner
DX: E78.5 Hyperlipidemia, unspecified (principal); I10 Essential (primary) hypertension; E11.9 Type 2 diabetes mellitus without complications; E03.9 Hypothyroidism, unspecified
CPT/HCPCS: 36415; 80053; 80061; 82043; 83036; 84439; 84443; 84481; 85025